=== PATIENT | female | born 1935 | race Caucasian/White ===

== ENCOUNTER 2018-12-31 11:09 | Emergency (ER) | payer MEDICARE, BC ==
[2018-12-31] MEDS ORDERED: Ondansetron 4 MG/2 ML SDV IVPUSH ONE (12:24)
[2018-12-31] MEDS ORDERED: Sodium Chloride 0.9% 1,000 ML IV SCH (12:30)
--- NOTE | 2018-12-31 12:38 | EDM.PDOC ---
<Gabriel Brown - Last Filed: 12/31/18 12:30> ED HPI GENERAL MEDICAL PROBLEM - General Chief Complaint: Back Pain or Injury Stated Complaint: BACK PAIN/NAUSEA/DIZZINESS Time Seen by Provider: 12/31/18 12:03 Source of Information: Reports: Patient History Limitations: Reports: No Limitations - History of Present Illness INITIAL COMMENTS - FREE TEXT/NARRATIVE: Dahlia Nielsen is a 83 year old female who presents to the ED with mid back pain. She had an EGD with dilation done on 12/[address] Lopez. She has had this procedure done many times without any issues. Yesterday evening she started to develop this back pain and has the day progressed the pain got worse. She states this morning she also felt nauseated and vomited her breakfast up this morning but she states that she did not see any blood or mucus in her emesis. Her pain is in her mid back and states that it's worse on the left side. Movement makes her pain worse will laying still makes it better. She rates it currently as a 4 but it progresses to a 9. She states that the pain radiates slightly down her back but nothing into her butt or legs. She had her rub Aspercream onto her back last night and she states that it caused a lot of pain when he was massaging it in. She's not really sure if the Aspercream helped or not. She has also been feeling a little lightheaded and she really notices it when she's up moving around. She has been having normal BM and her last BM was yesterday and she did not note any blood or mucus in her stool. Onset: Today Middle Posterior Back Pain Score (Numeric/FACES): 3 - Related Data Allergies Allergy/AdvReac Type Severity Reaction Status Date / Time No Known Allergies Allergy Verified 12/14/15 13:12 Home Meds: Home Meds Aspirin/Calcium Carbonate/Mag [Aspirin Buffered 325 mg Tab] 81 mg PO DAILY 12/13 [History] Calcium Citrate/Vitamin D3 [Calcium Citrate - Vit D Caplet] 1 tab PO DAILY 12/13 [History] Cholecalciferol (Vitamin D3) [Vitamin D3] 1,000 units PO DAILY 12/14/15 [History ] Fish Oil/[place]-3 Fatty Acids [Fish Oil 1,000 MG] 1,000 mg PO DAILY 12/14/15 [ History] Pravastatin [Pravachol] 20 mg PO DAILY 12/14/15 [History] Cholecalciferol (Vitamin D3) [Vitamin D3] 1,000 unit PO DAILY 12/31/18 [History] Denosumab [Prolia] 60 mg IM Q6M 12/31/18 [History] Omeprazole 20 mg PO DAILY 12/31/18 [History] traMADol [Ultram] 50 mg PO Q6H PRN #28 tab 12/31/18 [Rx] Past Medical History HEENT History: Reports: Impaired Vision Other HEENT History: wears glasses Cardiovascular History: Reports: High Cholesterol Other Cardiovascular History: vascular insufficiency Respiratory History: Reports: SOB Gastrointestinal History: Reports: Chronic Constipation, GERD Other Gastrointestinal History: dysphagia, nausea/vomiting Musculoskeletal History: Reports: Osteoarthritis, Osteoporosis Psychiatric History: Reports: Anxiety Other Psychiatric History: fatigue, malaise Endocrine/Metabolic History: Reports: Vitamin D Deficiency Hematologic History: Reports: Anemia Other Immunologic History: carmen dao virus - Past Surgical History Other Female Surgeries/Procedures: bladder surgery Other Musculoskeletal Surgeries/Procedures:: carpal tunnel surgery, foot surgery Social & Family History - Tobacco Use Smoking Status *Q: Never Smoker - Caffeine Use Caffeine Use: Reports: Soda, Tea - Recreational Drug Use Recreational Drug Use: No ED ROS GENERAL - Review of Systems Constitutional: Reports: No Symptoms Respiratory: Reports: No Symptoms Cardiovascular: Reports: No Symptoms GI/Abdominal: Reports: No Symptoms : Reports: No Symptoms Musculoskeletal: Reports: Back Pain, Muscle Pain, Muscle Stiffness Skin: Reports: No Symptoms Neurological: Reports: Other (Lightheaded) ED EXAM,LOWER BACK PAIN/INJURY - Physical Exam Exam Limited By: No Limitations General Appearance: Alert, WD/WN, No Apparent Distress Eye Exam: Bilateral Eye: Normal Inspection Respiratory/Chest: No Respiratory Distress, Lungs Clear, Normal Breath Sounds, No Accessory Muscle Use, Chest Non-Tender Cardiovascular: Normal Peripheral Pulses, Regular Rate, Rhythm, No Edema, No Gallop, No JVD, No Rub, Systolic Murmur GI/Abdominal: Normal Bowel Sounds, Soft, Non-Tender, No Organomegaly, No Distention, No Abnormal Bruit, No Mass Back Exam: Normal Inspection, Full Range of Motion, Decreased Range of Motion ( Due to pain), Paraspinal Tenderness, Vertebral Tenderness. No: Muscle Spasm Extremities: Normal Inspection, Normal Range of Motion, Non-Tender, No Pedal Edema, Normal Capillary Refill Neurological: Alert, Normal Mood/Affect, Normal Dorsiflexion, Normal Plantar Flexion, Normal Gait, Normal Reflexes, No Motor/Sensory Deficits, Oriented x 3 Psychiatric: Normal Affect, Normal Mood Skin Exam: Warm, Dry, Intact, Normal Color, No Rash Course - Vital Signs Last Recorded V/S: Last Vital Signs Temp 97.1 F 12/31/18 11:45 Pulse 53 L 12/31/18 11:45 Resp 20 12/31/18 11:45 BP 138/82 12/31/18 11:45 Pulse Ox 100 12/31/18 11:45 - Orders/Labs/Meds Orders: Active Orders 24 hr Category Date Time Status EKG Documentation Completion [RC] STAT Care 12/31/18 12:27 Ordered Chest 2V [CR] Stat Exams 12/31/18 12:19 Ordered Sodium Chloride 0.9% [Normal Saline] 1,000 ml Med 12/31/18 12:30 Ordered IV ASDIRECTED Medication Orders Sodium Chloride (Normal Saline) 1,000 mls @ 500 mls/hr IV ASDIRECTED CANDY Last Admin: 12/31/18 13:21 Dose: 500 mls/hr Labs: Laboratory Tests 12/31/18 12/31/18 Range/Units 13:15 13:15 WBC 6.42 (3.98-10.04) K/mm3 RBC 5.28 H (3.98-5.22) M/mm3 Hgb 15.7 (11.2-15.7) gm/L Hct 47.5 H (34.1-44.9) % MCV 90.0 (79.4-94.8) fl MCH 29.7 (25.6-32.2) pg MCHC 33.1 (32.2-35.5) g/dl RDW Std Deviation 44.0 (36.4-46.3) fL Plt Count 127 L (182-369) K/mm3 MPV 12.3 (9.4-12.3) fl Neutrophils % (Manual) 77 H (40-60) % Band Neutrophils % 0 (0-10) % Lymphocytes % (Manual) 18 L (20-40) % Atypical Lymphs % 0 % Monocytes % (Manual) 5 (2-10) % Eosinophils % (Manual) 0 L (0.7-5.8) % Basophils % (Manual) 0 L (0.1-1.2) Platelet Estimate Adequate RBC Morph Comment Normal Sodium 143 (136-145) mEq/L Potassium 3.9 (3.5-5.1) mEq/L Chloride 106 (98-107) mEq/L Carbon Dioxide 28 (21-32) mEq/L Anion Gap 12.9 (5-15) BUN 12 (7-18) mg/dL Creatinine 0.6 (0.55-1.02) mg/dL Est Cr Clr Drug Dosing 53.61 mL/min Estimated GFR (MDRD) > 60 (>60) mL/min BUN/Creatinine Ratio 20.0 H (14-18) Glucose 113 (83-115) mg/dL Calcium 9.6 (8.5-10.1) mg/dL Total Bilirubin 0.7 (0.2-1.0) mg/dL AST 17 (15-37) U/L ALT 23 (14-59) U/L Alkaline Phosphatase 86 (46-116) U/L Troponin I < 0.017 (0.00-0.056) ng/mL Total Protein 7.6 (6.4-8.2) g/dl Albumin 4.0 (3.4-5.0) g/dl Globulin 3.6 gm/dL Albumin/Globulin Ratio 1.1 (1-2) Meds: Medications Generic Name Dose Route Start Last Admin Trade Name Freq PRN Reason Stop Dose Admin Sodium Chloride 1,000 mls @ 500 mls/hr 12/31/18 12:30 12/31/18 13:21 Normal Saline IV 500 mls/hr ASDIRECTED CANDY Administration Discontinued Medications Generic Name Dose Route Start Last Admin Trade Name Freq PRN Reason Stop Dose Admin Hydromorphone HCl 0.5 mg 12/31/18 14:24 Dilaudid IVPUSH 12/31/18 14:25 ONETIME ONE Ondansetron HCl 4 mg 12/31/18 12:24 12/31/18 13:21 Zofran IVPUSH 12/31/18 12:25 4 mg ONETIME ONE Administration Departure - Departure Disposition: Home, Self-Care 01 Clinical Impression: Back pain Qualifiers: Back pain location: thoracic back pain Chronicity: acute Back pain laterality: unspecified Qualified Code(s): M54.6 - Pain in thoracic spine - Discharge Information Instructions: Back Pain, Adult, [id number] Referrals: Mindy Lemos NP [Primary Care Provider] - Forms: ED Department Discharge Additional Instructions: You have been evaluated in the ED for your back pain Your x-ray, EKG, laboratory evaluation did not demonstrate any acute abnormalities at this time. You were given IV fluids to correct a small amount of dehydration and some IV pain medications as well. Please use ice/heat as tolerated to the affected area. You may take tylenol 500 mg q6 hrs for pain relief. Please do so until you have a tolerable level of pain with activity. Do not exceed 4000mg tylenol in a 24 hour time period. You have been provided with a prescription for tramadol, 50 mg one tablet by mouth every 4-6 hours as needed for pain not relieved by Tylenol alone. Please return to ED if your symptoms should change or worsen. - My Orders Last 24 Hours: My Active Orders 12/31/18 12:19 Chest 2V [CR] Stat 12/31/18 12:27 EKG Documentation Completion [RC] STAT 12/31/18 12:30 Sodium Chloride 0.9% [Normal Saline] 1,000 ml IV ASDIRECTED - Assessment/Plan Last 24 Hours: My Active Orders 12/31/18 12:19 Chest 2V [CR] Stat 12/31/18 12:27 EKG Documentation Completion [RC] STAT 12/31/18 12:30 Sodium Chloride 0.9% [Normal Saline] 1,000 ml IV ASDIRECTED <Blanche Knight - Last Filed: 12/31/18 14:39> ED HPI GENERAL MEDICAL PROBLEM - History of Present Illness INITIAL COMMENTS - FREE TEXT/NARRATIVE: I have read and reviewed the student's HPI and examined the patient and agree with RODRIGO Callahan-student. ED ROS GENERAL - Review of Systems Review Of Systems: See Below ED EXAM,LOWER BACK PAIN/INJURY - Physical Exam Exam: See Below EKG INTERPRETATION EKG Date: 12/31/18 Time: 13:30 Rhythm: NSR (sinus yady) Rate (Beats/Min): 56 [place]: Normal P-Wave: Present QRS: Normal ST-T: Normal QT: Normal EKG Interpretation Comments: Early R wave transition, RVH with septal hypertrophy pattern. Reviewed with Dr. Cutler. Course - Orders/Labs/Meds Labs: Laboratory Tests 12/31/18 12/31/18 Range/Units 13:15 13:15 WBC 6.42 (3.98-10.04) K/mm3 RBC 5.28 H (3.98-5.22) M/mm3 Hgb 15.7 (11.2-15.7) gm/L Hct 47.5 H (34.1-44.9) % MCV 90.0 (79.4-94.8) fl MCH 29.7 (25.6-32.2) pg MCHC 33.1 (32.2-35.5) g/dl RDW Std Deviation 44.0 (36.4-46.3) fL Plt Count 127 L (182-369) K/mm3 MPV 12.3 (9.4-12.3) fl Neutrophils % (Manual) 77 H (40-60) % Band Neutrophils % 0 (0-10) % Lymphocytes % (Manual) 18 L (20-40) % Atypical Lymphs % 0 % Monocytes % (Manual) 5 (2-10) % Eosinophils % (Manual) 0 L (0.7-5.8) % Basophils % (Manual) 0 L (0.1-1.2) Platelet Estimate Adequate RBC Morph Comment Normal Sodium 143 (136-145) mEq/L Potassium 3.9 (3.5-5.1) mEq/L Chloride 106 (98-107) mEq/L Carbon Dioxide 28 (21-32) mEq/L Anion Gap 12.9 (5-15) BUN 12 (7-18) mg/dL Creatinine 0.6 (0.55-1.02) mg/dL Est Cr Clr Drug Dosing 53.61 mL/min Estimated GFR (MDRD) > 60 (>60) mL/min BUN/Creatinine Ratio 20.0 H (14-18) Glucose 113 (83-115) mg/dL Calcium 9.6 (8.5-10.1) mg/dL Total Bilirubin 0.7 (0.2-1.0) mg/dL AST 17 (15-37) U/L ALT 23 (14-59) U/L Alkaline Phosphatase 86 (46-116) U/L Troponin I < 0.017 (0.00-0.056) ng/mL Total Protein 7.6 (6.4-8.2) g/dl Albumin 4.0 (3.4-5.0) g/dl Globulin 3.6 gm/dL Albumin/Globulin Ratio 1.1 (1-2) - Re-Assessments/Exams Free Text/Narrative Re-Assessment/Exam: 12/31/18 12:43 Patient presents to the ED for the evaluation of mid back pain after an EGD done on 12/29/18. Due to the nature of her pain, I have ordered labs to rule out possible cardiac etiology of her pain as well. These include CBC, CMP, EKG, troponin, chest x-ray, and IV fluid bolus at 500 mLs per hour and 4 mg IV Zofran for nausea relief. 12/31/18 14:08 Patient's laboratory evaluation is back, her EKG does not show any acute changes at this time, her troponin is negative. Her pain is likely due to osteoporosis and musculoskeletal pain in nature. 12/31/18 14:25 Patient was reassessed at bedside and she states she still having some mild pain in her back, this is worsened by coughing. I did order 0.5 mg IV Dilaudid for further pain relief. Departure - Departure Time of Disposition: 14:36 Condition: Fair - Discharge Information *PRESCRIPTION DRUG MONITORING PROGRAM REVIEWED*: No *COPY OF PRESCRIPTION DRUG MONITORING REPORT IN PATIENT MIGUEL: No
[2018-12-31] MEDS ORDERED: HYDROmorphone 1 MG/ML Syringe IVPUSH ONE (14:24)
--- NOTE | 2018-12-31 15:14 | CR ---
Chest: PA and lateral views of the chest were obtained. Comparison: No prior chest x-ray is available. Heart size at the upper limits of normal. Tortuous thoracic aorta is seen. Lungs shows a granuloma within the left upper chest. No acute parenchymal change is seen. Lung markings are mildly increased which are most likely chronic. Bony structures are osteopenic. Kyphosis is seen within the thoracic spine. Impression: 1. Incidental findings as noted above. Nothing acute is suspected. Diagnostic code #2
[2018-12-31 15:31] VITALS: BP 100/69
== END 2018-12-31 15:05 | disposition home or self-care (01) ==
LOC: JD.ED 11:09
DX: M54.6 Pain in thoracic spine (principal); E78.00 Pure hypercholesterolemia, unspecified; K21.9 Gastro-esophageal reflux disease without esophagitis; F41.9 Anxiety disorder, unspecified; Z98.890 Other specified postprocedural states; Z79.82 Long term (current) use of aspirin; Z79.899 Other long term (current) drug therapy
CPT/HCPCS: 36415; 71046; 80053; 84484; 85007; 85027; 93005; 96361; 96374; 96375; 99284; J1170; J2405; J7040; 93010

== ENCOUNTER 2021-12-29 15:15 | Emergency (ER) | payer MEDICARE, BC ==
[2021-12-29 15:34] VITALS: BP 129/78; PULSE 71
[2021-12-29] MEDS ORDERED: Lidocaine 2% Jelly 10 ML Urojet MUCMEM ONE (16:18)
[2021-12-29] MEDS ORDERED: Magnesium Citrate Solution 296 ML Bottle PO ONE (18:24)
== END 2021-12-29 18:34 | disposition home or self-care (01) ==
LOC: JD.ED 15:15
DX: K59.01 Slow transit constipation (principal); E78.00 Pure hypercholesterolemia, unspecified; K21.9 Gastro-esophageal reflux disease without esophagitis; Z79.82 Long term (current) use of aspirin; Z79.899 Other long term (current) drug therapy
CPT/HCPCS: 74018; 99283; A9270